=== PATIENT | female | born 1970 | race Caucasian/White ===

== ENCOUNTER → 2024-06-26 06:51 | Outpatient (REF) | payer OTHER, SELFPAY | LOC: WDC 06:51 | PROVIDERS: ATTENDING PHYSICIAN Registered Nurse | DX: Z12.31 Encounter for screening mammogram for malignant neoplasm of breast (principal) | CPT/HCPCS: 77063; 77067 ==

== ENCOUNTER → 2025-06-05 07:20 | Outpatient (REF) | payer OTHER, SELFPAY ==
[2025-06-05 08:11] LABS: Hematocrit 44.1 % (37.0-47.0); Hemoglobin 13.7 g/dL (12.0-16.0); Mean Corp Hgb Conc. 31.1 g/dL (33.0-37.0); Mean Corpuscular Volume 95.9 fL (81.0-99.0); Nucleated Red Blood Cells % 0 %; Platelet Count 266 10^3/uL (130-400); Red Cell Dist. Width 12.6 % (11.5-14.5)
[2025-06-05 08:37] LABS: ALT (SGPT) 11 U/L (0-35); AST (SGOT) 22 U/L (14-36); Albumin 4.6 g/dl (3.5-5.0); Alkaline Phosphatase 63 U/L (38-126); Blood Urea Nitrogen 18 mg/dl (7-17); Calcium 9.9 mg/dl (8.4-10.2); Carbon Dioxide 27 mmol/L (22-30); Chloride 106 mmol/L (98-107); Glucose 85 mg/dl (70-99); HDL Cholesterol 84 mg/dl; LDL Cholesterol, Calculated 103 mg/dl; Potassium 4.5 mmol/L (3.5-5.1); Sodium 140 mmol/L (135-145); Total Protein 7.6 g/dl (6.3-8.2); Very Low Density Lipoprotein 20 mg/dl (0-30); eGFR > 60.00
== END ==
LOC: REG 07:20
PROVIDERS: ATTENDING PHYSICIAN Chiropractor; FAMILY PHYSICIAN Student in an Organized Health Care Education/Training Program
DX: R03.0 Elevated blood-pressure reading, without diagnosis of hypertension (principal); E66.811 Obesity, class 1; M54.12 Radiculopathy, cervical region
CPT/HCPCS: 36415; 72050; 80053; 80061; 85025